=== PATIENT | male | born 1990 | race Caucasian/White ===

== ENCOUNTER 2018-06-07 17:49 | Emergency (ER) | payer SELFPAY ==
[~2018-06-07] VITALS: Ht 165.1 cm; Wt 59.0 kg
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
[2018-06-07] MEDS ORDERED: LIDOCAINE 1%-EPI 1:100,000 20 ML VIAL ONE (18:22)
[2018-06-07] MEDS ORDERED: LIDOCAINE 1%-EPI 1:100,000 50 ML VIAL IJ ONE (18:30)
[2018-06-07] MEDS ORDERED: LORAZEPAM INJ 2 MG/ML VIAL IM ONE (18:30)
[2018-06-07] MEDS ORDERED: LORAZEPAM INJ 2 MG/ML VIAL ONE (18:32)
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
--- NOTE | 2018-06-07 19:18 | NUR ---
suturing done by madhavi CLEMENTE.
--- NOTE | 2018-06-07 19:46 | NUR ---
Patient discharged to home in stable condition. Written and verbal after care instructions given. Patient verbalizes understanding of instruction.
[2018-06-07 19:47] VITALS: BP 123/71
== END 2018-06-07 19:48 ==
LOC: ER 17:51
DX: S01.01XA Laceration without foreign body of scalp, initial encounter (principal); F17.200 Nicotine dependence, unspecified, uncomplicated; Z59.0 Homelessness; Z86.19 Personal history of other infectious and parasitic diseases; Y04.0XXA Assault by unarmed brawl or fight, initial encounter; Y93.89 Activity, other specified; Y92.89 Other specified places as the place of occurrence of the external cause; Y99.8 Other external cause status
CPT/HCPCS: J2060; J3490; Z7610

== ENCOUNTER 2018-07-27 05:41 | Emergency (ER) | payer SELFPAY ==
[~2018-07-27] VITALS: Ht 180.3 cm; Wt 86.2 kg
[2018-07-27 06:06] LABS: BASOPHILS # (AUTO) 0.1 /CMM (0.0-0.2); BASOPHILS % (AUTO) 0.9 % (0.0-2.0); EOSINOPHILS % (AUTO) 3.5 % (0.0-6.0); HEMATOCRIT 45 % (39-51); HEMOGLOBIN 15.1 g/dL (13.5-17.5); LYMPHOCYTES # (AUTO) 2.5 /CMM (0.8-4.8); LYMPHOCYTES % (AUTO) 27.7 % (20.0-44.0); MEAN CORPUSCULAR HGB CONC 33 g/dl (31.0-36.0); MEAN CORPUSCULAR VOLUME 87 fL (80-96); MONOCYTES # (AUTO) 0.9 /CMM (0.1-1.30); MONOCYTES % (AUTO) 9.5 % (2.0-12.0); NEUTROPHILS # (AUTO) 5.3 /CMM (1.8-8.9); NEUTROPHILS % (AUTO) 58.4 % (43.0-81.0); PLATELET COUNT (AUTO) 332 /CMM (150-450); RED BLOOD CELL COUNT(AUTO) 5.18 MIL/uL (4.5-6.0); WHITE BLOOD COUNT (AUTO) 9.1 K/uL (4.3-11.0)
[2018-07-27 06:16] LABS: CALCIUM, SERUM 8.6 mg/dL (8.5-10.1); CARBON DIOXIDE 31 mmol/L (21-32); CHLORIDE 104 mmol/L (98-107); CREATININE 0.9 mg/dL (0.6-1.3); GLUCOSE 108 mg/dL (74-106); POTASSIUM 3.7 mmol/L (3.5-5.1); SODIUM SERUM 142 mmol/L (136-145); UREA NITROGEN, BLOOD 9 mg/dL (7-18)
[2018-07-27 06:22] LABS: ALANINE AMINOTRANSFERASE 52 U/L (12-78); ALBUMIN 3.7 g/dL (3.4-5.0); ALCOHOL, BLOOD < 3 mg/dL (0-0); ALKALINE PHOSPHATASE 111 U/L (46-116); ASPARTATE AMINOTRANSFERASE 28 U/L (15-37); BILIRUBIN,DIRECT 0.1 mg/dL (0.0-0.2); BILIRUBIN,TOTAL 0.2 mg/dL (0.2-1.0); TOTAL PROTEIN, SERUM 7.4 g/dL (6.4-8.2)
[2018-07-27 06:23] LABS: SALICYLATE 1.5 mg/dL (2.8-20.0)
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
--- NOTE | 2018-07-27 07:35 | NUR ---
REPORT GIVEN TO CORRY MARTINEZ FOR [facility]
[2018-07-27 09:19] LABS: APPEARANCE,URINE Clear (CLEAR); BILIRUBIN,URINE Negative (NEGATIVE); BLOOD, URINE Large Ery/uL (NEGATIVE); COLOR,URINE Yellow (YELLOW); KETONES,URINE Negative (NEGATIVE); LEUKOCYTE ESTERASE ,URINE Negative (NEGATIVE); NITRITE, URINE Negative (NEGATIVE); PROTEIN,URINE Negative (NEGATIVE); UGLUCOSE Negative (NEGATIVE); UROBILINOGEN,URINE 0.2 EU/dL (0.2)
[2018-07-27 09:37] LABS: RBC,URINE 21-50 /HPF (0-2); WBC,URINE NONE SEEN /HPF (0-3)
[2018-07-27 09:38] LABS: BACTERIA,URINE None seen /HPF (None Seen); SQUAMOUS EPITHELIAL CELL,UR None Seen /HPF (None Seen)
--- NOTE | 2018-07-27 10:01 | NUR ---
NIR RN AT BEDSIDE FOR PSYCH EVAL.
[2018-07-27] MEDS ORDERED: OLANZAPINE 5 MG TABLET ONE (12:30)
[2018-07-27] MEDS ORDERED: OLANZAPINE 5 MG TABLET PO ONE (12:30)
[2018-07-27 13:09] VITALS: BP 134/71
--- NOTE | 2018-07-27 13:10 | NUR ---
discharge patient, in no apparent distress noted, signed homeless waiver form, given list of nursing home and patient amenable. made aware.
== END 2018-07-27 13:10 | disposition home or self-care (01) ==
LOC: ER 05:45
DX: F28 Other psychotic disorder not due to a substance or known physiological condition (principal); F15.90 Other stimulant use, unspecified, uncomplicated; F17.200 Nicotine dependence, unspecified, uncomplicated; Z59.0 Homelessness; Z86.19 Personal history of other infectious and parasitic diseases
CPT/HCPCS: 36415; 80048; 80076; 80305; 80307; 80329; 81001; 85025; 99283; A4606; G0480; 81000-TC

== ENCOUNTER 2018-07-27 19:01 | Emergency (ER) | payer SELFPAY ==
[~2018-07-27] VITALS: Ht 175.3 cm; Wt 79.4 kg
--- NOTE | 2018-07-27 19:27 | NUR ---
CALLED PATIENT, NO ANSWER.
--- NOTE | 2018-07-27 20:27 | NUR ---
CALLED PATIENT IN [place], NO ANSWER.
--- NOTE | 2018-07-28 00:15 | NUR ---
Pt denies si/hi. no signs of distress noted. pt states he would like a place to sleep. pt ok to discharge per Dr Gaona.
--- NOTE | 2018-07-28 05:50 | NUR ---
pt discharged home in stable condition.
[2018-07-28 08:03] VITALS: BP 132/80
== END 2018-07-28 08:04 | disposition home or self-care (01) ==
LOC: ER 19:03
DX: F15.10 Other stimulant abuse, uncomplicated (principal); F17.200 Nicotine dependence, unspecified, uncomplicated; Z86.19 Personal history of other infectious and parasitic diseases; Z59.0 Homelessness
CPT/HCPCS: 99281; A4606; Z7502